=== PATIENT | male | born 1960 | race Caucasian/White ===

== ENCOUNTER 2016-11-18 12:09 | Emergency (ER) | payer BC, SELFPAY ==
[2016-11-18 13:05] LABS: Bilirubin Negative (Negative); Blood, Urine Negative (Negative); Clarity Clear (Clear); Glucose, Urine (Dipstick) Negative (Negative); Leukocyte Negative (Negative); Nitrite Negative (Negative); Protein, Urine (Dipstick) Negative (Neg-Trace); Urobilinogen 0.2 mg/dL (0.2-1.0)
--- NOTE | 2016-11-18 13:15 | RAD ---
TWO VIEWS OF THE LEFT HIP HISTORY: Left hip pain for several days. COMPARISON: None. FINDINGS: Two views of the left hip show no evidence of acute fracture or dislocation. Mild degenerative walters ges are seen. No soft tissue swelling is present. IMPRESSION: Mild degenerative changes of the left hip without acute osseous abnormality. POS: [facility]
== END 2016-11-18 13:40 | disposition home or self-care (01) ==
LOC: MADERS 12:09
DX: S39.011A Strain of muscle, fascia and tendon of abdomen, initial encounter (principal); M16.12 Unilateral primary osteoarthritis, left hip; I10 Essential (primary) hypertension; F17.210 Nicotine dependence, cigarettes, uncomplicated; X58.XXXA Exposure to other specified factors, initial encounter
CPT/HCPCS: 81003